=== PATIENT | male | born 1940 | race Caucasian/White ===

== ENCOUNTER → 2017-12-21 15:21 | Outpatient (CLI) | payer MEDICARE, OTHER, SELFPAY ==
[2017-12-21 16:15] LABS: Prothrombin Time (Protime)PT. 37.7 SECONDS (11.7-14.9)
[2017-12-21 17:56] LABS: International Normalized Ratio 3.8
== END ==
PROVIDERS: Family Provider Internal Medicine; PCP Internal Medicine; Referring Provider Internal Medicine; Visit Provider Internal Medicine
DX: I48.91 Unspecified atrial fibrillation (principal)
CPT/HCPCS: 85610

== ENCOUNTER → 2018-01-21 10:20 | Outpatient (CLI) | payer MEDICARE, OTHER, SELFPAY ==
--- NOTE | 2018-01-21 11:17 | CR.HP_ITS ---
CR - History & Physical - General Arrival date:: 01/21/18 Arrival time:: 11:13 Date of Referral:: 01/21/18 Date of CR Evaluation:: 01/21/18 Referring Physician: Dr. Valladares Primary Diagnosis: Aortic valve replacement 11/16/17 - History of Present Cardiac Event Onset Date: Enter Onset Date of cardiac illnesses in Comment field below Current stable Angina Pectoris:: No Acute Myocardial Infarction within 12 months:: No Coronary Artery Bypass Graft:: No Heart valve replacement or repair:: Yes - aortic valve PTCA or coronary stenting:: No Heart or Heart-Lung Transplant:: No Heart Failure EF <35%:: No Type of Symptoms:: leaky valve needed replaced, decreased endurance Interventions with present event:: open chest valve replacement Were there any complications?: no - Medications Home Medications: Ambulatory Orders Medication Instructions Recorded Ascorbic Acid [Vitamin C] 500 mg PO DAILY@0800 02/20/14 Enalapril Maleate [Vasotec] 20 mg PO BID 02/20/14 Finasteride [Proscar] 5 mg PO DAILY 02/20/14 Lysine [l-Lysine] 600 mg PO DAILY 02/20/14 Multivitamins,Therapeutic 1 tab PO DAILY 02/20/14 [Multivitamin] Warfarin Sodium 1 tab PO MOWEFR 07/11/16 Warfarin [Coumadin] 7.5 mg PO SUTUTHSA 07/11/16 echinacea 380 mg capsule 380 mg PO ONCE PRN 03/19/17 awxiacitkfk-ooa-wkxonzssh-hrb 1 tab PO DAILY 03/19/17 149-hyalur 500 mg-500 mg-66.7 mg tablet pollens extract tablet 1 tab PO DAILY 03/19/17 triamcinolone acetonide 55 mcg 2 spray INTRANASAL QDAY 03/19/17 nasal spray aerosol zinc 50 mg tablet 50 mg PO QDAY PRN 03/19/17 Hydrocodone Bitart/Apap 5-325 1 tab PO Q6H PRN PRN #8 tab 03/26/17 [Sweeden 5MG-325MG] Acetaminophen 325 mg PO Q6H PRN PRN 01/21/18 Aspirin 81 mg PO DAILY 01/21/18 Losartan Potassium [Cozaar] 25 mg PO DAILY 01/21/18 - Allergies Allergies/Adverse Reactions: Allergies amlodipine Allergy (Unknown, Verified 04/09/17 08:48) Unknown adhesive tape Allergy (Verified 04/09/17 08:48) Rash clarithromycin [From Biaxin] Adverse Reaction (Verified 04/09/17 08:48) Other HALLUCINATIONS doxycycline Adverse Reaction (Verified 04/09/17 08:48) Other HALLUCINATIONS oxycodone [Oxycodone] Adverse Reaction (Verified 04/09/17 08:48) Nausea oxycodone HCl [From Percocet] Adverse Reaction (Verified 04/09/17 08:48) Other HYPERACTIVITY,HALLUCINATIONS tamsulosin HCl [From Flomax] Adverse Reaction (Verified 04/09/17 08:48) Other MUSCLE SORENESS - Sleep Disorder Evaluation Hx of Sleep Apnea: No Do you snore loudly (louder than talking or can be heard through closed doors)?: Yes Do you often feel tired/ fatigued/ sleepy during daytime?: Yes Has anyone observed you stop breathing during sleep?: No History of Hypertension (for STOP score): Yes STOP Results: Positive Advanced Directives - Advanced Directives Power of Yacht Rigger: Yes Living Will: Yes Advance Directives Information Provided: Yes Advance Directives on File: Yes DNR Order?:: No Past Medical History - Past Medical Illness Medical History: Past Medical History (Last Reviewed 04/09/17 @ 08:48 by April Olvera) Hx of sigmoidoscopy (Acute) Z98.890 05/06/2007, 05/30/2010 Atrial flutter (Acute) I48.92 Atrial fibrillation (Acute) I48.91 Basal cell carcinoma (Acute) C44.91 Carotid artery occlusion (Acute) I65.29 Degenerative disc disease (Acute) 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 External hemorrhoids without mention of complication (Acute) K64.4 Hemorrhage of rectum and anus (Acute) K62.5 Hypertrophy of prostate with urinary retention (Acute) N40.1, R33.8 Osteoarthritis (Acute) M19.90 Hypertension (Chronic) I10 - Past Surgical History Surgical History: Past Surgical History (Last Reviewed 04/09/17 @ 08:48 by April Olvera) 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 Shoulder and Left side of face 2014 S/P colonoscopy (Acute) Z98.890 06/05/2011 History of heart valve replacement (Acute) Z98.890, Z95.2 - Family History Summary Family History: Family History (Last Reviewed 04/09/17 @ 08:48 by April Olvera) Father Heart disease Social History - Smoking History Smoking Status: Former smoker Hx Smoking Cessation Date: quit Hx Tobacco Use: No Hx Smoking Exposure: No - Alcohol Use Alcohol Usage: Yes - occas beer/wine, none since surgery - Substance Abuse Hx Substance Use: No - Occupation Occupation (List type of work in comments):: Retired - Hobbies, Recreation, Social Activities Hobbies: Exercise, Other - family Recreational Activities: I am able to engage in all my recreational activities Social Environment - Status Marital Status: - Current Living Arrangements Living Environment:: Spouse - Children How many children do you have?: 3 Do any of your children live nearby?: Yes - Safety Do you feel safe in your surroundings?: Yes - Assistance Do you need any assistance at home?: yes, snow shoveling Review of Systems - Review of Systems Hints: Right click = Denies ([place]). Left click = Reports ([place]) Review of Present Symptoms: Reports: PVD - some decreased circ to toes, Operative Discomfort - yes, some soreness yet., Fatigue, Heart Arrhythmia/Irregularities - has afib, Appetite - Normal, Appetite - Special Diet. Denies: Shortness of Breath at Rest, Shortness of Breath with Exertion, Angina, Wound Healing, Dizziness/Lightheadedness, Sleep - Normal, Sexual Changes - Pain Is Patient Pain Free?: Yes Previous experience dealing with pain?: Tylenol prn Risk Factor Assessment - Chief Complaint Chief Complaint: For cardiac rehab post valve replacement - Pulse Pulse Rate: 50 - has A fib Pulse Rhythm: Irregular - Hypertension On medication(s)?: yes Blood Pressure Sitting - Left Arm: 116/80 - Obesity Height: 5 ft 8 in Weight:: 175 lb Weight in Pounds: 175.0 lbs Body Mass Index (BMI): 26.6 Nutritional Referral for Obesity: No - Risk Stratification Risk Guidelines: Lowest Risk: Risk Factor for Smoking, Risk Factor for Diabetes, Risk Factor for Obesity, Risk Factor for Hypertension, Risk Factor for Sedentary Lifestyle, Risk Factor for Depression, Moderate Risk: Risk Factor for Dyslipidemia - For Smoking Smoking Risk Guidelines: Smoking Low Risk: None or quit greater than 6 months ago. Smoking Moderate Risk: Smoker or quit 6 months or less ago. Smoking High Risk: Smoker - For Dyslipidemia Dyslipidemia Risk Guidelines: Low Risk: Moderate Risk: High Risk: 15-25% fat 25.1-29% fat >/= 30% fat. <7% sat fat 7-9% sat fat >9% sat fat. <150 mg chol 150-299 mg chol >/= 300 mg chol. LDL <100 LDL 100-129 LDL >/= 130. Chol/HDL ratio <5.0 Chol/HDL ratio 5.0-6.0 Chol/HDL ratio >6.0. Triglycerides <100 Triglycerides 100-149 Triglycerides >/= 150 - For Diabetes Mellitus Diabetes Risk Guidelines: Diabetes Low Risk: HgA1c <6.5% and/or FBG <120. Diabetes Moderate Risk: HgA1c 6.6-7.9% and/or FBG 120-180. Diabetes High Risk: HgA1c >/= 8% and/or FBG >180 - For Obesity/Overweight Obesity/Overweight Risk Guidelines: Obesity Low Risk: BMI <25.0. Obesity Moderate Risk: BMI 25-29.9. Obesity High Risk: BMI >/= 30.0 - For Hypertension Hypertension Risk Guidelines: Hypertension Low Risk: Systolic <120 and Diastolic <80. Hypertension Moderate Risk: Systolic 120-139 and Diastolic 80-89. Hypertension High Risk: Systolic >/= 140 and Diastolic >/= 90 - For Sedentary Lifestyle Sedentary Lifestyle Risk Guidelines: Sedentary Lifestyle Low Risk: >/= 1,500 kcal/week. Sedentary Lifestyle Moderate Risk: 700-1,499 kcal/week. Sedentary Lifestyle High Risk: < 700 kcal/week - For Depression Depression Risk Guidelines: Depression Low Risk: Not clinically depressed. Depression Moderate Risk: Mildly depressed. Depression High Risk: Clinically depressed - Family History Family History: Family History (Last Reviewed 04/09/17 @ 08:48 by April Olvera) Father Heart disease Motivation - Motivation to Participate On a scale of 1 to 10, how prepared are you to commit to attending program?: 10
[2018-01-21 11:54] VITALS: BP 116/80; PULSE 50; BMI 26.6
--- NOTE | 2018-01-21 12:45 | CR.ITP_ITS ---
General Information - General Information Admitting Diagnosis: AVR - Education/Goals Barriers to Learning: None Individual Counseling: Initial Assessment: Abnormal Cholesterol Levels, High Blood Pressure Cardiac Rehabilitation Goals: 1. Maintain the individual as the primary focus of care. 2. To improve the patient's quality of life. 3. Identification of cardiac risk factors and provide cardiac risk factor management. 4. Enhance the psychosocial status of the patient. 5. Reconditioning enough to allow the patient to resume customary activities. 6. Control symptoms of cardiac disease Scale for measuring improvement of personal goals: Enter appropriate number in Comments. 2 = Unchanged. 3 = Slightly Better. 4 = Moderate Improvement. 5 = Met my Goal Personal Goals: Initial Assessment: Improve energy level, Participate in home exercise program - return to level of fitness pre-surgery, Get back to work, or to resume activities faster - mow the lawn next year, Improve muscle strength and endurance Exercise - Initial Assessment - Visit Date of Eval: 01/21/18 - Stages of Change Stages of Change:: Action - Exercise Prescription Mode:: Treadmill, Rower, Airdyne, NuStep Angina with exercise?: No Target Heart Rate:: 106-113 - Hypertension Do any of the following apply?: Medication Resting Blood Pressure:: 126/68 - Intervention Home Exercise/Activity Goal:: Moderate Exercise 30 min/day x 5 days/wk - Education Goals:: Warm-up, RPE CAMILLA Scale, S/S, Safe Exercise, Self-Monitoring Nutrition - Initial Assessment - Program Goals Nutrition Program Goals: LDL <70. Total Cholesterol <200. HDL >45. Triglycerides <150. HgbA1C <7%. BMI <25 - Visit Date of Assessment:: 01/21/18 - Stages of Change Stages of Change:: Action - Diabetes Diabetes:: No Do you monitor your blood sugar at home?: No - Weight Management Height: 5 ft 8 in Weight:: 175 lb Body Fat %:: 26.61 - Intervention Referral to dietitian:: No Referral to Diabetic Clinic:: No Will attend diet classes:: Yes - Education Gave educational materials for:: Healthy eating Tobacco - Initial Assessment - Program Goals Tobacco Program Goals: Complete smoking cessation. Attend education classes. Improve Knowledge Test score - Stage of Change Stages of Change:: Action - Learning Barriers Learning Barriers: Ready to Learn - Family Support Do you have family support?: Yes - Tobacco Use Tobacco Use: Non-smoker Do you use smokeless tobacco?: No - Intervention Smoking Cessation Referral:: No Education Schedule Given:: Yes - Education Gave educational material for:: Coronary artery disease, Risk factors, Sexuality, Medical compliance, Cardiac A&P, Angina signs & symptoms Psychosocial - Initial Assess - Target Goals Target Goals: Assess presence or absence of depression. Using a valid screening tool, maximizes coping skills. Positive support system - Stages of Change Stages of Change:: Action - Psychosocial Test Tool Used:: HANDS Depression Questionnaire - Intervention PS - Interventions: Yes Attend Stress Management Classes, No Referral to Mental Health, No Referral to [facility] Case Management, No Referral to Physician, No Uses Stress Management Skills - Education Gave educational materials for:: Coping techniques, Signs & symptoms of depression, Stress management, Relaxation techniques - Patient/Program Goal Preventative Medication(s):: Aspirin, Clopidogrel, Beta loly, Statin/lipid - Assistive Devices Assistive Devices:: None Fall Risk Assessed:: Yes Patient Health Questionnaire Initial Assessment 1. Little interest or pleasure in doing things: Not at all 2. Feeling down, depressed, or hopeless: Not at all 3. Trouble falling or staying asleep, or sleeping too much: Not at all 4. Feeling tired or having little energy: Several days 5. Poor appetite or overeating: Not at all 6. Feeling bad about yourself -- or that you are a failure or have let yourself or your family down: Not at all 7. Trouble concentrating on things, such as reading the newspaper or watching television: Several days 8. Moving or speaking so slowly that other people could have noticed. Or the opposite - being so fidgety or restless that you have been moving around a lot more than usual: Several days 9. Thoughts that you would be better off , or of hurting yourself in some way: Not at all How difficult have these problems made it for you to do your work, take care of things at home, or get along with other people?: Not difficult at all Total Score: 3 BETHANY-Q SV Test - Statements CAD is a disease of the arteries in the heart: False Examples of risk factors for heart disease: True Angina is chest pain or discomfort: True The benefits of resistance training include: True Eating more meat and dairy products: False Anti-platelet medications such as aspirin are important: True The only effective way to manage stress: False An exercise warm-up slowly increases heart rate: True Prepared, processed foods usually have high sodium: True Depression is common after a heart attack: True The statin medications lower cholesterol: True To control blood pressure, lower the amount of sodium: True If someone gets chest discomfort during walking: False Transfats are partially hydrogenated vegetable oils: True Sleep apnea that is not treated increases the risk: False To control cholesterol, one should become a vegetarian: False Someone knows if he/she is exercising at the right level: True Diabetes cannot be prevented with exercise & health eating: False Stress is a large risk for heart attack: True A diet that can help lower blood pressure is rich in: True - Total Score Total Correct Responses: 20 Self-Efficacy Initial Assessment We would like to know how confident you are in doing certain activities. Please select your confidence level for:: Select your confidence level for the following using the scale 1-10 where 1 is not at all confident and 10 is totally confident. Your score is the average of all 6 responses. Fatigue: How confident are you that you can keep the fatigue caused by your disease from interfering with the things you want to do? Select Number: 9 Physical Discomfort or Pain: How confident are you that you can keep the physical discomfort or pain of your disease from interfering with the things you want to do? Select Number: 10 Emotional Distress: How confident are you that you can keep the emotional distress caused by your disease from interfering with the things you want to do? Select Number: 10 Other Symptoms or Health Problems: How confident are you that you can keep other symptoms or health problems from interfering with the things you want to do? Select Number: 10 Different Tasks and Activities: How confident are you that you can do the different tasks and activities needed to manage your health condition so as to reduce your need to see a doctor? Select Number: 10 Medication: How confident are you that you can do things other than just taking medication to reduce how much your illness affects your everyday life? Select Number: 10 Total Score:: 9 Nutrition Survey - Nutrition Survey Instructions Scoring Instructions: Scoring is as follows: Yes = 1 points. No = 0 point. Patient score that is >/=12 is considered to be at potential nutritional risk and could benefit from a referral to a registered dietitian. - Nutrition Survey Initial Have you lost >10 lbs over the past 2 months without trying?: No Are you following a special diet at home for diabetes, low fat, or low salt?: No Are you interested in meeting with a dietitian for help understanding your diet?: No Do you eat less than 3 meals a day?: No Do you eat fatty meats (markham, sausage, ribs, etc), fried foods, desserts, large amounts of salad dressings, margarine, butter, or cheese most days?: No Do you have food allergies? [Enter types in comment field]: No Do you eat in restaurants more than 3 times a week?: No Do you season food with salt, seasoning salt, or garlic salt?: No Do you used canned, boxed, frozen meals, or soups, seasoning packets?: No - Strict Nutritional Diet and [employer]. Total Score:: 0
[2018-01-21 12:48] VITALS: BP 126/68
== END ==
PROVIDERS: Family Provider Internal Medicine; PCP Internal Medicine
DX: Z95.2 Presence of prosthetic heart valve (principal)

== ENCOUNTER 2018-02-05 13:00 | Outpatient (RCR) | payer MEDICARE, OTHER, SELFPAY ==
[2018-01-21 11:54] VITALS: BMI 26.6
== END 2018-02-05 23:59 ==
LOC: CR 13:00
PROVIDERS: Family Provider Internal Medicine; PCP Internal Medicine
DX: T82.897D Other specified complication of cardiac prosthetic devices, implants and grafts, subsequent encounter (principal)
CPT/HCPCS: 93798

== ENCOUNTER 2018-03-08 13:00 | Outpatient (RCR) | payer MEDICARE, OTHER, SELFPAY ==
[2018-01-21 11:54] VITALS: BMI 26.6
--- NOTE | 2018-02-22 09:43 | PCM.CR.ITP ---
General Information - General Information Admitting Diagnosis: AVR - Education/Goals Cardiac Rehabilitation Goals: 1. Maintain the individual as the primary focus of care. 2. To improve the patient's quality of life. 3. Identification of cardiac risk factors and provide cardiac risk factor management. 4. Enhance the psychosocial status of the patient. 5. Reconditioning enough to allow the patient to resume customary activities. 6. Control symptoms of cardiac disease Scale for measuring improvement of personal goals: Enter appropriate number in Comments. 2 = Unchanged. 3 = Slightly Better. 4 = Moderate Improvement. 5 = Met my Goal Exercise - 30-day Assessment - Visit Date of Eval: 02/22/18 Session #:: 11 - Stages of Change Stages of Change:: Action - Exercise Prescription Mode:: Treadmill, Airdyne, NuStep Frequency (x/week): 3 Duration:: 35 METs - Progression: 0.5-1 MET as tolerated: 7.5 Target Heart Rate:: 121-132 Max HR 124 - Hypertension Resting Blood Pressure:: 118/78 Peak Exercise Blood Pressure:: 150/78 - Intervention Home Exercise/Activity Goal:: Sitting Time <3 hrs/day - Education Goals:: Warm-up, RPE CAMILLA Scale, S/S, Safe Exercise, Self-Monitoring - Exercise Program Goals Exercise Program Goals: Aerobic Activity >30 min, B/P <130/80 Nutrition - Initial Assessment - Program Goals Nutrition Program Goals: LDL <70. Total Cholesterol <200. HDL >45. Triglycerides <150. HgbA1C <7%. BMI <25 - Diabetes Do you monitor your blood sugar at home?: No Nutrition - 30-Day Assessment - Program Goals Nutrition Program Goals: LDL <70. Total Cholesterol <200. HDL >45. Triglycerides <150. HgbA1C <7%. BMI <25 - Visit Date of Eval: 02/22/18 - Stages of Change Stages of Change:: Action - Weight Management Weight:: 82.554 kg - Intervention Referral to dietitian:: No Referral to Diabetic Clinic:: No Will attend diet classes:: Yes - Education Attended class for:: Signs & symptoms of hypoglycemia, Signs & symptoms of hyperglycemia, Relate diabetes to coronary artery disease, Healthy eating Tobacco - Initial Assessment - Program Goals Tobacco Program Goals: Complete smoking cessation. Attend education classes. Improve Knowledge Test score - Learning Barriers Learning Barriers: Ready to Learn Tobacco - 30-Day Assessment - Program Goals Tobacco Program Goals: Complete smoking cessation. Attend education classes. Improve Knowledge Test score - Stage of Change Stages of Change:: Action - Learning Barriers Learning Barriers: Participates in education - Family Support Do you have family support?: Yes - Tobacco Use Tobacco Use: Non-smoker - Education Attended class for:: Tobacco triggers, Coronary artery disease, Risk factors, Sexuality, Medical compliance, Cardiac A&P, Angina signs & symptoms Psychosocial - Initial Assess - Target Goals Target Goals: Assess presence or absence of depression. Using a valid screening tool, maximizes coping skills. Positive support system - Psychosocial Test Tool Used:: HANDS Depression Questionnaire - Assistive Devices Fall Risk Assessed:: Yes Psychosocial - 30-Day Assess - Target Goals Target Goals: Assess presence or absence of depression. Using a valid screening tool, maximizes coping skills. Positive support system - Stages of Change Stages of Change:: Action - Psychosocial Test Tool Used:: HANDS Depression Questionnaire - Intervention PS - Interventions: Yes Attend Stress Management Classes, Yes Uses Stress Management Skills, No Referral to Mental Health, No Referral to [facility] Case Management, No Referral to Physician - Education Attended classes for:: Coping techniques, Signs & symptoms of depression, Stress management, Relaxation techniques - Assistive Devices Assistive Devices:: None Fall Risk Assessed:: Yes Patient Health Questionnaire 30-Day Re-eval Assessment 1. Little interest or pleasure in doing things: Not at all 2. Feeling down, depressed, or hopeless: Not at all 3. Trouble falling or staying asleep, or sleeping too much: Not at all 4. Feeling tired or having little energy: Several days 5. Poor appetite or overeating: Not at all 6. Feeling bad about yourself -- or that you are a failure or have let yourself or your family down: Not at all 7. Trouble concentrating on things, such as reading the newspaper or watching television: Several days 8. Moving or speaking so slowly that other people could have noticed. Or the opposite - being so fidgety or restless that you have been moving around a lot more than usual: Several days 9. Thoughts that you would be better off , or of hurting yourself in some way: Not at all How difficult have these problems made it for you to do your work, take care of things at home, or get along with other people?: Not difficult at all Total Score: 3 Self-Efficacy 30-Day Re-eval Assessment We would like to know how confident you are in doing certain activities. Please select your confidence level for:: Select your confidence level for the following using the scale 1-10 where 1 is not at all confident and 10 is totally confident. Your score is the average of all 6 responses. Fatigue: How confident are you that you can keep the fatigue caused by your disease from interfering with the things you want to do? Select Number: 9 Physical Discomfort or Pain: How confident are you that you can keep the physical discomfort or pain of your disease from interfering with the things you want to do? Select Number: 10 Emotional Distress: How confident are you that you can keep the emotional distress caused by your disease from interfering with the things you want to do? Select Number: 10 Other Symptoms or Health Problems: How confident are you that you can keep other symptoms or health problems from interfering with the things you want to do? Select Number: 10 Different Tasks and Activities: How confident are you that you can do the different tasks and activities needed to manage your health condition so as to reduce your need to see a doctor? Select Number: 10 Medication: How confident are you that you can do things other than just taking medication to reduce how much your illness affects your everyday life? Select Number: 10 Total Score:: 9
[2018-02-22 09:48] VITALS: BP 118/78; BP 150/78
== END 2018-03-08 23:59 ==
LOC: CR 13:00
PROVIDERS: Family Provider Internal Medicine; PCP Internal Medicine
DX: T82.897D Other specified complication of cardiac prosthetic devices, implants and grafts, subsequent encounter (principal)
CPT/HCPCS: 93798

== ENCOUNTER 2018-04-07 13:00 | Outpatient (RCR) | payer MEDICARE, OTHER, SELFPAY ==
[2018-01-21 11:54] VITALS: BMI 26.6
[2018-03-09 01:22] VITALS: BP 118/78; BP 150/78
--- NOTE | 2018-03-24 08:58 | PCM.CR.ITP ---
General Information - General Information Admitting Diagnosis: valve replacement/ AVR - Education/Goals Cardiac Rehabilitation Goals: 1. Maintain the individual as the primary focus of care. 2. To improve the patient's quality of life. 3. Identification of cardiac risk factors and provide cardiac risk factor management. 4. Enhance the psychosocial status of the patient. 5. Reconditioning enough to allow the patient to resume customary activities. 6. Control symptoms of cardiac disease Scale for measuring improvement of personal goals: Enter appropriate number in Comments. 2 = Unchanged. 3 = Slightly Better. 4 = Moderate Improvement. 5 = Met my Goal Exercise - 60-Day Assessment - Visit Date of Eval: 03/24/18 Session #:: 23 - Stages of Change Stages of Change:: Action - Exercise Prescription Mode:: Treadmill, Rower, Airdyne Frequency (x/week): 3 Duration:: 30-45 METs: 8 Target Heart Rate:: 121-132 Max HR 122 - Hypertension Resting Blood Pressure:: 132/80 Peak Exercise Blood Pressure:: 150/80 - Intervention Home Exercise/Activity Goal:: Sitting Time <3 hrs/day - Education Goals:: Warm-up, RPE CAMILLA Scale, S/S, Safe Exercise, Self-Monitoring - Exercise Program Goals Exercise Program Goals: Aerobic Activity >30 min, B/P <130/80 Nutrition - Initial Assessment - Program Goals Nutrition Program Goals: LDL <70. Total Cholesterol <200. HDL >45. Triglycerides <150. HgbA1C <7%. BMI <25 - Diabetes Do you monitor your blood sugar at home?: No Nutrition - 60-Day Assessment - Program Goals Nutrition Program Goals: LDL <70. Total Cholesterol <200. HDL >45. Triglycerides <150. HgbA1C <7%. BMI <25 - Visit Date of Eval: 03/24/18 - Stages of Change Stages of Change:: Action - Weight Management Weight:: 82.554 kg - Intervention Referral to dietitian:: No Referral to Diabetic Clinic:: No Will attend diet classes:: Yes - Education Attended class for:: Signs & symptoms of hypoglycemia, Signs & symptoms of hyperglycemia, Relate diabetes to coronary artery disease, Healthy eating Tobacco - Initial Assessment - Program Goals Tobacco Program Goals: Complete smoking cessation. Attend education classes. Improve Knowledge Test score - Learning Barriers Learning Barriers: Ready to Learn Tobacco - 60-Day Assessment - Program Goals Tobacco Program Goals: Complete smoking cessation. Attend education classes. Improve Knowledge Test score - Stage of Change Stages of Change:: Action - Learning Barriers Learning Barriers: Participates in education - Family Support Do you have family support?: Yes - Tobacco Use Tobacco Use: Non-smoker Do you use smokeless tobacco?: No - Intervention Smoking Cessation Referral:: No Individual Education/Counseling:: No Education Schedule Given:: Yes - Education Attended class for:: Tobacco triggers, Coronary artery disease, Risk factors, Sexuality, Medical compliance, Cardiac A&P, Angina signs & symptoms Psychosocial - Initial Assess - Target Goals Target Goals: Assess presence or absence of depression. Using a valid screening tool, maximizes coping skills. Positive support system - Psychosocial Test Tool Used:: HANDS Depression Questionnaire - Assistive Devices Fall Risk Assessed:: Yes Psychosocial - 60-Day Assess - Target Goals Target Goals: Assess presence or absence of depression. Using a valid screening tool, maximizes coping skills. Positive support system - Stages of Change Stages of Change:: Action - Psychosocial Test Tool Used:: HANDS Depression Questionnaire - Intervention PS - Interventions: Yes Attend Stress Management Classes, Yes Uses Stress Management Skills, No Referral to Mental Health, No Referral to [facility] Case Management, No Referral to Physician - Education Attended classes for:: Coping techniques, Signs & symptoms of depression, Stress management, Relaxation techniques - Assistive Devices Assistive Devices:: None Fall Risk Assessed:: Yes Patient Health Questionnaire 60-Day Re-eval Assessment 1. Little interest or pleasure in doing things: Not at all 2. Feeling down, depressed, or hopeless: Not at all 3. Trouble falling or staying asleep, or sleeping too much: Not at all 4. Feeling tired or having little energy: Not at all 5. Poor appetite or overeating: Not at all 6. Feeling bad about yourself -- or that you are a failure or have let yourself or your family down: Not at all 7. Trouble concentrating on things, such as reading the newspaper or watching television: Several days 8. Moving or speaking so slowly that other people could have noticed. Or the opposite - being so fidgety or restless that you have been moving around a lot more than usual: Several days 9. Thoughts that you would be better off , or of hurting yourself in some way: Not at all How difficult have these problems made it for you to do your work, take care of things at home, or get along with other people?: Not difficult at all Total Score: 2 Self-Efficacy 60-Day Re-eval Assessment We would like to know how confident you are in doing certain activities. Please select your confidence level for:: Select your confidence level for the following using the scale 1-10 where 1 is not at all confident and 10 is totally confident. Your score is the average of all 6 responses. Fatigue: How confident are you that you can keep the fatigue caused by your disease from interfering with the things you want to do? Select Number: 10 Physical Discomfort or Pain: How confident are you that you can keep the physical discomfort or pain of your disease from interfering with the things you want to do? Select Number: 10 Emotional Distress: How confident are you that you can keep the emotional distress caused by your disease from interfering with the things you want to do? Select Number: 10 Other Symptoms or Health Problems: How confident are you that you can keep other symptoms or health problems from interfering with the things you want to do? Select Number: 10 Different Tasks and Activities: How confident are you that you can do the different tasks and activities needed to manage your health condition so as to reduce your need to see a doctor? Select Number: 10 Medication: How confident are you that you can do things other than just taking medication to reduce how much your illness affects your everyday life? Select Number: 10 Total Score:: 10
[2018-03-24 09:04] VITALS: BP 132/80; BP 150/80
== END 2018-04-08 23:59 ==
LOC: CR 13:00
PROVIDERS: Family Provider Internal Medicine; PCP Internal Medicine
DX: T82.897D Other specified complication of cardiac prosthetic devices, implants and grafts, subsequent encounter (principal)
CPT/HCPCS: 93798

== ENCOUNTER 2018-04-23 13:00 | Outpatient (RCR) | payer MEDICARE, OTHER, SELFPAY ==
[2018-01-21 11:54] VITALS: BMI 26.6
[2018-04-09 01:26] VITALS: BP 132/80; BP 150/80
--- NOTE | 2018-04-21 09:02 | CR.ITP_ITS ---
General Information - General Information Admitting Diagnosis: Valve Replacement - Education/Goals Cardiac Rehabilitation Goals: 1. Maintain the individual as the primary focus of care. 2. To improve the patient's quality of life. 3. Identification of cardiac risk factors and provide cardiac risk factor management. 4. Enhance the psychosocial status of the patient. 5. Reconditioning enough to allow the patient to resume customary activities. 6. Control symptoms of cardiac disease Scale for measuring improvement of personal goals: Enter appropriate number in Comments. 2 = Unchanged. 3 = Slightly Better. 4 = Moderate Improvement. 5 = Met my Goal Exercise - 90-Day Assessment - Visit Date of Eval: 04/21/18 Session #:: 35 - Stages of Change Stages of Change:: Action - Exercise Prescription Mode:: Treadmill, Rower, Airdyne Frequency (x/week): 3 Duration:: 30-45 METs: 8 Target Heart Rate:: 121-132 Max HR 124 - Intervention Home Exercise/Activity Goal:: Sitting Time <3 hrs/day - Education Goals:: Warm-up, RPE CAMILLA Scale, S/S, Safe Exercise, Self-Monitoring - Exercise Program Goals Exercise Program Goals: Aerobic Activity >30 min, B/P <130/80 Nutrition - Initial Assessment - Program Goals Nutrition Program Goals: LDL <70. Total Cholesterol <200. HDL >45. Triglycerides <150. HgbA1C <7%. BMI <25 - Diabetes Do you monitor your blood sugar at home?: No Nutrition - 90-Day Assessment - Program Goals Nutrition Program Goals: LDL <70. Total Cholesterol <200. HDL >45. Triglyce rides <150. HgbA1C <7%. BMI <25 - Visit Date of Eval: 04/21/18 - Stages of Change Stages of Change:: Action - Diabetes Diabetes:: No - Weight Management Weight:: 83.688 kg - Intervention Referral to dietitian:: No Referral to Diabetic Clinic:: No Will attend diet classes:: Yes - Education Attended class for:: Signs & symptoms of hypoglycemia, Signs & symptoms of hyperglycemia, Relate diabetes to coronary artery disease, Healthy eating Tobacco - Initial Assessment - Program Goals Tobacco Program Goals: Complete smoking cessation. Attend education classes. Improve Knowledge Test score - Learning Barriers Learning Barriers: Ready to Learn Tobacco - 90-Day Assessment - Program Goals Tobacco Program Goals: Complete smoking cessation. Attend education classes. Improve Knowledge Test score - Stage of Change Stages of Change:: Action - Learning Barriers Learning Barriers: Participates in education - Family Support Do you have family support?: Yes - Tobacco Use Tobacco Use: Non-smoker Do you use smokeless tobacco?: No - Intervention Smoking Cessation Referral:: No Individual Education/Counseling:: No Education Schedule Given:: Yes - Education Attended class for:: Tobacco triggers, Coronary artery disease, Risk factors, Sexuality, Medical compliance, Cardiac A&P, Angina signs & symptoms Psychosocial - Initial Assess - Target Goals Target Goals: Assess presence or absence of depression. Using a valid screening tool, maximizes coping skills. Positive support system - Psychosocial Test Tool Used:: HANDS Depression Questionnaire - Assistive Devices Fall Risk Assessed:: Yes Psychosocial - 90-Day Assess - Target Goals Target Goals: Assess presence or absence of depression. Using a valid screening tool, maximizes coping skills. Positive support system - Stages of Change Stages of Change:: Action - Psychosocial Test Tool Used:: HANDS Depression Questionnaire - Intervention PS - Interventions: Yes Attend Stress Management Classes, Yes Uses Stress Management Skills, No Referral to Mental Health, No Referral to [facility] Case Management, No Referral to Physician - Education Attended classes for:: Coping techniques, Signs & symptoms of depression, Stress management, Relaxation techniques - Assistive Devices Assistive Devices:: None Fall Risk Assessed:: Yes Patient Health Questionnaire 90-Day Re-eval Assessment 1. Little interest or pleasure in doing things: Not at all 2. Feeling down, depressed, or hopeless: Not at all 3. Trouble falling or staying asleep, or sleeping too much: Not at all 4. Feeling tired or having little energy: Not at all 5. Poor appetite or overeating: Not at all 7. Trouble concentrating on things, such as reading the newspaper or watching television: Several days 8. Moving or speaking so slowly that other people could have noticed. Or the opposite - being so fidgety or restless that you have been moving around a lot more than usual: Several days 9. Thoughts that you would be better off , or of hurting yourself in some way: Not at all How difficult have these problems made it for you to do your work, take care of things at home, or get along with other people?: Not difficult at all Total Score: 2 Self-Efficacy 90-Day Re-eval Assessment We would like to know how confident you are in doing certain activities. Please select your confidence level for:: Select your confidence level for the following using the scale 1-10 where 1 is not at all confident and 10 is totally confident. Your score is the average of all 6 responses. Fatigue: How confident are you that you can keep the fatigue caused by your disease from interfering with the things you want to do? Select Number: 10 Physical Discomfort or Pain: How confident are you that you can keep the physical discomfort or pain of your disease from interfering with the things you want to do? Select Number: 10 Emotional Distress: How confident are you that you can keep the emotional distress caused by your disease from interfering with the things you want to do? Select Number: 10 Other Symptoms or Health Problems: How confident are you that you can keep other symptoms or health problems from interfering with the things you want to do? Select Number: 10 Different Tasks and Activities: How confident are you that you can do the different tasks and activities needed to manage your health condition so as to reduce your need to see a doctor? Select Number: 10 Medication: How confident are you that you can do things other than just taking medication to reduce how much your illness affects your everyday life? Select Number: 10 Total Score:: 10
== END 2018-05-06 23:59 ==
LOC: CR 13:00
PROVIDERS: Family Provider Internal Medicine; PCP Internal Medicine
DX: T82.897D Other specified complication of cardiac prosthetic devices, implants and grafts, subsequent encounter (principal)
CPT/HCPCS: 93798

== ENCOUNTER 2022-08-28 08:57 | Inpatient (IN) | payer MEDICARE, OTHER, SELFPAY ==
[2022-08-28 08:58] VITALS: BP 156/91; PULSE 94; RESP 18; TEMP 36.2; O2SAT 97; BMI 27.1
--- NOTE | 2022-08-28 09:21 | ED.VIS.GI ---
HPI HPI - GI History of Present Illness Chief Complaint: GI Bleed Narrative Narrative: 51-year-old male presenting with rectal bleeding. He states it is bright red. He states he had this after he had a bowel movement today. He does have a history of hemorrhoids and is unsure if these were bleeding. He states there was a lot of blood and he has not had this much blood in the past. He has had bleeding hemorrhoids. No lightheadedness or dizziness. No shortness of breath. Patient on Coumadin for history of A-fib. 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 External hemorrhoids without mention of complication Hemorrhage of rectum and anus Hx of sigmoidoscopy Hypertension Hypertrophy of prostate with urinary retention Osteoarthritis Home Medications finasteride 5 mg tablet 5 mg PO DAILY PROSTATE 02/20/14 [History Last Taken 08/27/22] lysine 600 mg tablet 600 mg PO DAILY PRN Cold Sores 02/20/14 [History Last Taken Unknown] warfarin 5 mg tablet 1 tab PO SUMOTUTHFRSA BLOOD THINNER 07/11/16 [History Last Taken 08/26/22] echinacea 380 mg capsule 380 mg PO ONCE PRN COLD SYMPTOMS 03/19/17 [History Last Taken Unknown] triamcinolone acetonide 55 mcg nasal spray aerosol (Nasacort) 1 - 2 spray intranasal QHS ALLERGIES 03/19/17 [History Last Taken 08/27/22] aspirin 81 mg tablet,delayed release 81 mg PO DAILY HEART HEALTH 08/28/22 [History Last Taken 08/27/22] atorvastatin 10 mg tablet 10 mg PO QHS CHOLESTEROL 08/28/22 [History Last Taken 08/27/22] cholecalciferol (vitamin D3) 25 mcg (1,000 unit) tablet 25 mcg PO DAILY SUPPLEMENT 08/28/22 [History Last Taken 08/27/22] losartan 50 mg tablet 50 mg PO BID BLOOD PRESSURE 08/28/22 [History Last Taken 08/27/22] metoprolol tartrate 50 mg tablet 50 mg PO BID BLOOD PRESSURE 08/28/22 [History Last Taken 08/27/22] warfarin 5 mg tablet 7.5 mg PO WE BLOOD THINNER 08/28/22 [History Last Taken 08/27/22] zinc acetate 50 mg (zinc) capsule 50 mg PO DAILY PRN Cold Symptoms 08/28/22 [History Last Taken Unknown] Allergy/AdvReac Type Severity Reaction Status Date / Time amlodipine Allergy Unknown Unknown Verified 04/09/17 08:48 adhesive tape Allergy Rash Verified 04/09/17 08:48 clarithromycin [From Biaxin] AdvReac Other Verified 04/09/17 08:48 doxycycline AdvReac Other Verified 04/09/17 08:48 oxycodone [Oxycodone] AdvReac Nausea Verified 04/09/17 08:48 oxycodone HCl [From Percocet] AdvReac Other Verified 04/09/17 08:48 tamsulosin HCl [From Flomax] AdvReac Other Verified 04/09/17 08:48 Family History Father Heart disease Surgical History History of basal cell carcinoma excision History of heart valve replacement History of surgery on upper extremity S/P aortic valve replacement with tissue S/P cataract extraction S/P colonoscopy S/P rotator cuff repair Status post total hip replacement, left Status post total replacement of hip Social History Smoking Status: Former smoker second hand exposure: No alcohol intake: current alcohol intake frequency: holidays/special occasions only substance use type: does not use caffeine: No what type of physical activity do you participate in: other details: patient goes to [facility] frequency: 1-2 times per week seatbelt use: always ROS ROS ED Constitutional Constitutional ED: Denies chills, fever(s) or sweats Eyes Eyes: Denies blurry vision or change in vision ENT ENT ED: Denies ear pain or sore throat Cardiovascular Cardiovascular: Denies chest pain, palpitations or racing heartbeat Respiratory/Chest Respiratory/Chest: Denies cough, dyspnea or sputum Gastrointestinal Gastrointestinal: Reports other Details: Bright red bleeding per rectum ; Denies abdominal pain, constipation, diarrhea, nausea or vomiting Genitourinary Genitourinary ED: Denies dysuria, hematuria or urinary frequency Musculoskeletal Musculoskeletal: Denies arthralgias, myalgias or neck pain Integumentary Denies abscess, Abrasions or rash Neurologic Neurologic: Denies headache(s), paresthesias or weakness Psychiatric Psychiatric: Denies anxiety, depression, suicidal ideation or suicidal thoughts Endocrine Endocrinology: Denies polydipsia or polyuria EXAM Physical Exam Const Vital Signs: 08/28/22 08:58 08/28/22 09:44 08/28/22 13:07 Temperature 97.1 F L 97.8 F Temperature Source Temporal Temporal Pulse Rate 94 71 Pulse Rate [Lying] 60 Pulse Rate [Sitting (for 1 minute prior to obtaining)] 68 Pulse Rate [Standing (for 1 minute prior to obtaining)] 62 Respiratory Rate 18 16 Blood Pressure 156/91 H 175/99 H Blood Pressure [Lying] 158/88 H Blood Pressure [Sitting (for 1 minute prior to obtaining)] 154/79 H Blood Pressure [Standing (for 1 minute prior to obtaining)] 144/82 H Blood Pressure Mean 112 124 Blood Pressure Mean [Lying] 111 Blood Pressure Mean [Sitting (for 1 minute prior to obtaining)] 104 Blood Pressure Mean [Standing (for 1 minute prior to obtaining)] 102 Pulse Ox 97 97 Oxygen Delivery Method Room Air Room Air Positive well nourished General Appearance ED: NAD; Negative for pallor HEENT Reports moist mucous membranes normocephalic and atraumatic Eyes PERRL and EOMs intact bilaterally Resp normal respiratory effort and clear to auscultation bilaterally Auscultation: Negative for rales, rhonchi or wheezes Cardio regular rate and regular rhythm GI non-tender and non-distended GI Narrative: Red dried blood around rectum. No bleeding hemorrhoids noted. Neuro CN's II-XII intact bilaterally Sensorium / Orientation: alert Psych mental status grossly normal Skin no wounds General Skin Exam: Negative for jaundice or pallor MDM MDM MDM Narrative Medical decision making narrative: 81-year-old male presenting with painless bright red bleeding per rectum. He states he is not lightheaded or dizzy. He is on Coumadin and is therapeutic. Differential includes diverticular bleed, diverticulitis, internal hemorrhoids, external hemorrhoids. On examination he does not have any significant hemorrhoids nor is there any bleeding noted. There are some dried blood around the rectum. CBC will be obtained to assess white blood cell count, hemoglobin, platelets. PT/INR because patient is on Coumadin. CMP to assess liver function, renal function, glucose, anion gap, electrolytes. I reviewed the record on clinic think it looks like his hemoglobin is come down to 11.5 about point half. White blood cell count 6.8. Platelets normal. INR 2.6. Liver function and renal function normal. Electrolytes normal. Orthostatic vital signs negative. Spoke with Dr. Gray who is amenable to having the patient admitted for GI bleed but recommended CT scan prior to admission. This was performed and it shows acute diverticulitis. Patient was given Zosyn, he was typed and screened. I spoke with the hospitalist for admission. I did call Dr. Gray back to inform him of the diagnosis. Impression: 1. Acute sigmoid diverticulitis 2. Diverticular bleed Lab Data Labs: Laboratory Results - last 24 hr 08/28/22 08/28/22 08/28/22 09:30 09:30 09:30 WBC 6.8 RBC 3.75 L Hgb 11.5 L Hct 34.5 L MCV 92.0 MCH 30.7 MCHC 33.3 RDW Std Deviation 47.0 H RDW Coeff of Ed 14.0 Plt Count 183 MPV 8.9 Immature Gran % (Auto) 0.400 Neut % (Auto) 48.8 Lymph % (Auto) 34.1 [place] % (Auto) 11.3 H Eos % (Auto) 4.7 Baso % (Auto) 0.7 Absolute Neuts (auto) 3.3 Absolute Lymphs (auto) 2.33 Nucleated RBC % 0 PT 28.6 H INR 2.6 Sodium Potassium Chloride Carbon Dioxide Anion Gap BUN Creatinine Estim Creat Clear Calc Est GFR (MDRD) Af Amer Est GFR (MDRD) Non-Af BUN/Creatinine Ratio Glucose Calcium Total Bilirubin AST ALT Alkaline Phosphatase Total Protein Albumin Globulin Albumin/Globulin Ratio Blood Type O POSITIVE Antibody Screen NEGATIVE 08/28/22 09:30 WBC RBC Hgb Hct MCV MCH MCHC RDW Std Deviation RDW Coeff of Ed Plt Count MPV Immature Gran % (Auto) Neut % (Auto) Lymph % (Auto) [place] % (Auto) Eos % (Auto) Baso % (Auto) Absolute Neuts (auto) Absolute Lymphs (auto) Nucleated RBC % PT INR Sodium 141 Potassium 4.1 Chloride 108 H Carbon Dioxide 30.0 Anion Gap 3 L BUN 30 H Creatinine 1.12 Estim Creat Clear Calc 49.20 Est GFR (MDRD) Af Amer 81 Est GFR (MDRD) Non-Af 67 BUN/Creatinine Ratio 26.8 H Glucose 102 Calcium 9.1 Total Bilirubin 0.80 AST 29 ALT 30 Alkaline Phosphatase 121 H Total Protein 6.7 Albumin 3.3 Globulin 3.4 Albumin/Globulin Ratio 1.0 Blood Type Antibody Screen Radiography Diagnostic Testing: Clinical Impression(s) from Imaging Studies Abdomen/Pelvis CT 08/28/22 11:33 IMPRESSION: Acute diverticulitis suspected in the distal descending and proximal sigmoid colon where there is some mucosal thickening of the colon and a minimal amount of pericolonic inflammatory stranding. No perforation or abscess noted Mild fatty infiltration of liver, no discrete lesion No free intraperitoneal fluid, air, or suspicious adenopathy Diffuse atherosclerosis Degenerative bony changes, replaced hip joints free of complication Electronically Signed: Phillip Arriola MD at 12:16 EDT , Discharge Plan Disposition Disposition: Acute Care Hospital [facility] Discharge Date/Time: 08/28/22 13:48
[2022-08-28 09:42] LABS: Absolute Lymphocyte Count 2.33 X10^3/uL (0.83-4.51); Absolute Neutrophil Count 3.3 X10^3/uL (2.0-7.7); Basophil# 0.05 X10^3/uL; Basophil% 0.7 % (0-1); Eosinophil# 0.32 X10^3/uL; Eosinophils% 4.7 % (0-5); Hematocrit 34.5 % (40-54); Hemoglobin 11.5 g/dL (13.0-16.5); Lymphocyte # 2.33 X10^3/ul (0.83-4.51); Lymphocyte % 34.1 % (19-41); Mean Corp Hgb Conc 33.3 g/dL (32-36); Mean Corpuscular Hgb 30.7 pg (27.0-32.0); Mean Platelet Vol. 8.9 fl (6.2-12.0); Monocyte# 0.77 X10^3/uL; Monocyte% 11.3 % (0-10); NRBC Flagged by Analyzer 0 % (0-5); Neutrophil # 3.33 X10^3/uL (2.7-7.7); Neutrophil % 48.8 % (47-70); Platelet Count 183 K/mm3 (150-450); Red Blood Count 3.75 M/mm3 (4.6-6.2); White Blood Count 6.8 K/mm3 (4.4-11.0)
[2022-08-28 09:44] VITALS: BP 144/82; BP 154/79; BP 158/88; PULSE 60; PULSE 62; PULSE 68
[2022-08-28 09:51] LABS: International Normalized Ratio 2.6; Prothrombin Time (Protime)PT. 28.6 SECONDS (11.7-14.9)
[2022-08-28 09:58] LABS: AST(SGOT) 29 U/L (15-37); Alanine Aminotransfer ALT/SGPT 30 U/L (16-61); Albumin, Serum 3.3 g/dL (3.2-5.0); Alkaline Phosphatase 121 U/L (45-117); Anion Gap 3 (5-15); BUN 30 mg/dL (7-18); BUN/Creat Ratio 26.8 RATIO (10-20); Calcium,Total 9.1 mg/dL (8.5-10.1); Chloride 108 mmol/L (98-107); Creatinine, Serum 1.12 mg/dL (0.70-1.30); EST Glomerular Filtration Rate 67 mL/min (>60); Est Glom Filt Rate - Afr Amer 81 mL/min (>60); Globulin 3.4 g/dL (2.2-4.2); Glucose 102 mg/dL (74-106); Potassium 4.1 mmol/L (3.5-5.1); Protein, Total 6.7 g/dL (6.4-8.2); Sodium Level 141 mmol/L (136-145)
--- NOTE | 2022-08-28 11:33 | CT_ITS ---
STUDY: CT ABDOMEN AND PELVIS WITH CONTRAST REASON FOR EXAM: Male, 81 years old. Anemia, possible GI bleed RADIATION DOSAGE (If Supplied By Facility): CTDIvol = ( 14.68 ) mGy, DLP = ( 793.55 ) mGycm TECHNIQUE: Transaxial images were obtained from the dome of the diaphragm to the symphysis pubis without oral contrast. IV 100mL Isovue-300 was administered. Sagittal and coronal images were reconstructed. Individualized dose optimization techniques were used for this CT. COMPARISON: None. FINDINGS: There are chronic interstitial fibrotic changes of the lung bases. 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 Mild fatty infiltration of liver is noted. Normal gallbladder and extrahepatic biliary system. Normal spleen. Normal pancreas. Normal bilateral adrenal glands. Normal right kidney. Normal left kidney. Normal visualized stomach. Normal small intestine. Retained stool noted throughout the majority of the colon. Scattered colonic diverticula noted. Within the distal descending and proximal sigmoid colon, there is some mucosal thickening of the colon with a minimal amount of pericolonic inflammatory stranding suggesting acute diverticulitis. No perforation or abscess is noted. The appendix is visualized and appears normal. Appendix noted on coronal recon images 54 through 62 There is diffuse atherosclerotic calcification of the abdominal aorta and its branches, without a demonstrated aneurysm. Normal inferior vena cava. Normal retroperitoneum. Normal urinary bladder. Normal abdominal wall. Degenerative bony changes noted throughout the lumbar spine and pelvis. Bilateral hip replacements free of complication CT/Abdomen/Pelvis W IV Cont ONLY IMPRESSION: Acute diverticulitis suspected in the distal descending and proximal sigmoid colon where there is some mucosal thickening of the colon and a minimal amount of pericolonic inflammatory stranding. No perforation or abscess noted Mild fatty infiltration of liver, no discrete lesion No free intraperitoneal fluid, air, or suspicious adenopathy Diffuse atherosclerosis Degenerative bony changes, replaced hip joints free of complication Electronically Signed: Phillip Arriola MD at 12:16 EDT ,
[2022-08-28 13:07] VITALS: BP 175/99; PULSE 71; RESP 16; TEMP 36.6; O2SAT 97
--- NOTE | 2022-08-28 13:37 | PCM.HP.STD ---
HPI - General General Date of Admission: 08/28/22 Date of Service: 08/28/22 Chief Complaint: Bright red blood per rectum HPI Narrative DAWSON GARCIA, is a 81 M with history of hemorrhoids, atrial flutter on Coumadin with history of ablation, pacemaker, aortic valve repair, hypertension who presented to [facility] 08/28/2022 with bright red blood per rectum. Earlier in the day he was going to the bathroom when he stood up bright red blood came out and was dripping down. He presented to the ED and there was bright blood initially on exam by ED physician. He contacted GI who recommended CT scan and CT scan showed changes consistent with diverticulitis. Hospitalist consulted for admission. Patient evaluated family member at bedside, he reported he was hungry and wanted to eat but otherwise had no complaints. Denied any abdominal pain, diarrhea, constipation. Said that he had the bleeding earlier and that was his only complaint and denied bleeding like that previously, has had some blood before when straining with his hemorrhoids but not like this. No fevers or chills, no chest pain or shortness of breath. [facility] Medical History (Updated 08/28/22 @ 17:[address] 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 External hemorrhoids without mention of complication Hemorrhage of rectum and anus Hx of sigmoidoscopy Hypertension Hypertrophy of prostate with urinary retention Osteoarthritis Home Medications finasteride 5 mg tablet 5 mg PO DAILY PROSTATE 02/20/14 [History Last Taken 08/27/22] lysine 600 mg tablet 600 mg PO DAILY PRN Cold Sores 02/20/14 [History Last Taken Unknown] warfarin 5 mg tablet 1 tab PO SUMOTUTHFRSA BLOOD THINNER 07/11/16 [History Last Taken 08/26/22] echinacea 380 mg capsule 380 mg PO ONCE PRN COLD SYMPTOMS 03/19/17 [History Last Taken Unknown] triamcinolone acetonide 55 mcg nasal spray aerosol (Nasacort) 1 - 2 spray intranasal QHS ALLERGIES 03/19/17 [History Last Taken 08/27/22] aspirin 81 mg tablet,delayed release 81 mg PO DAILY HEART HEALTH 08/28/22 [History Last Taken 08/27/22] atorvastatin 10 mg tablet 10 mg PO QHS CHOLESTEROL 08/28/22 [History Last Taken 08/27/22] cholecalciferol (vitamin D3) 25 mcg (1,000 unit) tablet 25 mcg PO DAILY SUPPLEMENT 08/28/22 [History Last Taken 08/27/22] losartan 50 mg tablet 50 mg PO BID BLOOD PRESSURE 08/28/22 [History Last Taken 08/27/22] metoprolol tartrate 50 mg tablet 50 mg PO BID BLOOD PRESSURE 08/28/22 [History Last Taken 08/27/22] warfarin 5 mg tablet 7.5 mg PO WE BLOOD THINNER 08/28/22 [History Last Taken 08/27/22] zinc acetate 50 mg (zinc) capsule 50 mg PO DAILY PRN Cold Symptoms 08/28/22 [History Last Taken Unknown] Allergy/AdvReac Type Severity Reaction Status Date / Time amlodipine Allergy Unknown Unknown Verified 04/09/17 08:48 adhesive tape Allergy Rash Verified 04/09/17 08:48 clarithromycin [From Biaxin] AdvReac Other Verified 04/09/17 08:48 doxycycline AdvReac Other Verified 04/09/17 08:48 oxycodone [Oxycodone] AdvReac Nausea Verified 04/09/17 08:48 oxycodone HCl [From Percocet] AdvReac Other Verified 04/09/17 08:48 tamsulosin HCl [From Flomax] AdvReac Other Verified 04/09/17 08:48 Family History Father Heart disease Surgical History History of basal cell carcinoma excision History of heart valve replacement History of surgery on upper extremity S/P aortic valve replacement with tissue S/P cataract extraction S/P colonoscopy S/P rotator cuff repair Status post total hip replacement, left Status post total replacement of hip Social History Smoking Status: Former smoker second hand exposure: No alcohol intake: current alcohol intake frequency: holidays/special occasions only substance use type: does not use caffeine: No what type of physical activity do you participate in: other details: patient goes to [facility] frequency: 1-2 times per week seatbelt use: always ROS ROS Narrative General: Denies fever/chills HENT: Denies headache, denies stuffy nose, denies sore throat EYES: Denies changes in vision Resp: Denies cough, denies shortness of breath Cardiac: Denies chest pain GI: Denies abdominal pain, denies changes in bowel, denies nausea/vomiting, earlier had bright red blood per rectum : Denies changes in urination Extremity: Denies swelling MSK: Denies weakness Neuro: Denies any numbness/tingling Heme: Denies any bleeding or bruising Skin: Denies rashes Psychiatric: No complaints voiced Vital Signs Vital Signs Vital Signs: 08/28/22 08:58 08/28/22 09:44 08/28/22 13:07 Temperature 97.1 F L 97.8 F Temperature Source Temporal Temporal Pulse Rate 94 71 Pulse Rate [Lying] 60 Pulse Rate [Sitting (for 1 minute prior to obtaining)] 68 Pulse Rate [Standing (for 1 minute prior to obtaining)] 62 Respiratory Rate 18 16 Blood Pressure 156/91 H 175/99 H Blood Pressure [Lying] 158/88 H Blood Pressure [Sitting (for 1 minute prior to obtaining)] 154/79 H Blood Pressure [Standing (for 1 minute prior to obtaining)] 144/82 H Blood Pressure Mean 112 124 Blood Pressure Mean [Lying] 111 Blood Pressure Mean [Sitting (for 1 minute prior to obtaining)] 104 Blood Pressure Mean [Standing (for 1 minute prior to obtaining)] 102 Pulse Ox 97 97 Oxygen Delivery Method Room Air Room Air Weight Weight: 80.921 kg Body Mass Index (BMI) 27.1 Physical Exam Narrative General: Alert, oriented, no apparent distress HEENT: Atraumatic, normocephalic Eyes: Anicteric, normal conjunctiva, extraocular movements grossly intact Neck: Supple Respiratory: Clear to auscultation bilaterally, normal respiratory effort Cardiovascular: Regular rate and rhythm GI: Soft, nontender, nondistended Extremities: No edema Musculoskeletal: Moving all extremities Neuro: No overt focal neurological deficits Skin: No rashes appreciated Psych: Irritable Results Lab / Micro Data Result Diagrams: 08/28/22 14:46 08/28/22 09:30 Labs: Laboratory Results - last 24 hr 08/28/22 09:30: PT 28.6 H, INR 2.6 08/28/22 09:30: Blood Type O POSITIVE, Antibody Screen NEGATIVE 08/28/22 09:30: WBC 6.8, RBC 3.75 L, Hgb 11.5 L, Hct 34.5 L, MCV 92.0, MCH 30.7, MCHC 33.3, RDW Std Deviation 47.0 H, RDW Coeff of Ed 14.0, Plt Count 183, MPV 8.9, Immature Gran % (Auto) 0.400, Neut % (Auto) 48.8, Lymph % (Auto) 34.1, [place] % (Auto) 11.3 H, Eos % (Auto) 4.7, Baso % (Auto) 0.7, Absolute Neuts (auto) 3.3, Absolute Lymphs (auto) 2.33, Nucleated RBC % 0 08/28/22 09:30: Sodium 141, Potassium 4.1, Chloride 108 H, Carbon Dioxide 30.0, Anion Gap 3 L, BUN 30 H, Creatinine 1.12, Estim Creat Clear Calc 49.20, Est GFR (MDRD) Af Amer 81, Est GFR (MDRD) Non-Af 67, BUN/Creatinine Ratio 26.8 H, Glucose 102, Calcium 9.1, Total Bilirubin 0.80, AST 29, ALT 30, Alkaline Phosphatase 121 H, Total Protein 6.7, Albumin 3.3, Globulin 3.4, Albumin/Globulin Ratio 1.0 Radiology Impression Abdomen/Pelvis CT 08/28/22 11:33 IMPRESSION: Acute diverticulitis suspected in the distal descending and proximal sigmoid colon where there is some mucosal thickening of the colon and a minimal amount of pericolonic inflammatory stranding. No perforation or abscess noted Mild fatty infiltration of liver, no discrete lesion No free intraperitoneal fluid, air, or suspicious adenopathy Diffuse atherosclerosis Degenerative bony changes, replaced hip joints free of complication Electronically Signed: Phillip Arriola MD at 12:16 EDT , Assessment & Plan Assessment/Plan (1) Diverticulitis: PLAN: Plan #Bright red blood per rectum -Likely secondary to diverticula -Had enough blood that it was pouring out of him per patient and some dried blood around rectum -Hemoglobin 11.5, increased to 12.1 and orthostatic negative -Started on Zosyn, no further blood appreciated upon floor and patient anxious to eat -Diet ordered -Discussed with GI, no plans for present scope given bleeding resolved, hemoglobin stable, diverticulitis noted and diverticula most likely the culprit -Will eventually need outpatient colonoscopy if one has not been recently completed -Patient had the episode of blood per rectum and only dried blood noted in the ED on initial exam but has no further bleeding, and hemoglobin actually increased, will hold off on urgent reversal of INR of 2.6 given elevated [id number] in light of no further bleeding we will monitor H&H with low threshold to give vitamin K if any further bleeding is appreciated and will hold any further Coumadin dosing #Acute uncomplicated diverticulitis -Presented with blood per rectum and was found to have diverticulitis on CT scan in ED -Started on Zosyn -Patient wanted to eat, from a diverticulitis perspective could likely be treated as an outpatient once verified bleeding has resolved #Atrial fibrillation with history of cardioversion -Patient therapeutic on Coumadin, given resolved bleeding with no drop in hemoglobin and negative orthostats and no symptoms do not feel he needs to be urgently reversed with his INR of 2.6 but low threshold to do so with any further bleeding at all -We will hold Coumadin however at this time #DVT ppx: Patient presently still therapeutic on Coumadin Swetha Lozano MD Time spent in the patient's overall evaluation,decision-making process, review of diagnostic data, adjustment of management, discussion with other providers, nursing nursing and ancillary staff involved in patient's care documentation, 60 minutes Charges/Coding Visit Charges Inpatient E&M: 96541 Init Hosp L2
[2022-08-28 13:59] VITALS: BMI 27.1
[2022-08-28 14:15] VITALS: BP 157/98; PULSE 65; RESP 18; TEMP 36.1; O2SAT 100
[2022-08-28 14:54] LABS: Hemoglobin 12.1 g/dL (13.0-16.5)
[2022-08-28 18:40] LABS: Hemoglobin 12.2 g/dL (13.0-16.5)
[2022-08-28 20:15] VITALS: BP 144/77; PULSE 62; RESP 16; TEMP 36.6; O2SAT 98
[2022-08-28] MEDS: Losartan Potassium 50 MG Tablet 25 MG PO (21:18)
[2022-08-28] MEDS: Atorvastatin Calcium 10 MG Tablet PO (21:19)
[2022-08-28] MEDS: 0.9% Saline Lock 10 ML Syringe IV (21:27)
[2022-08-28 23:14] VITALS: BP 144/77; PULSE 62
[2022-08-28] MEDS: Metoprolol Tartrate 50 MG Tablet PO (23:14)
[2022-08-29 03:00] VITALS: BP 142/88; PULSE 60; RESP 16; TEMP 36.6; O2SAT 98
[2022-08-29 06:08] LABS: Absolute Lymphocyte Count 2.25 X10^3/uL (0.83-4.51); Absolute Neutrophil Count 3.3 X10^3/uL (2.0-7.7); Basophil# 0.05 X10^3/uL; Basophil% 0.8 % (0-1); Eosinophil# 0.34 X10^3/uL; Eosinophils% 5.1 % (0-5); Hematocrit 31.9 % (40-54); Lymphocyte # 2.25 X10^3/ul (0.83-4.51); Mean Corp Hgb Conc 34.5 g/dL (32-36); Mean Corpuscular Hgb 31.4 pg (27.0-32.0); Mean Corpuscular Volume 91.1 fL (80-94); Mean Platelet Vol. 8.7 fl (6.2-12.0); Monocyte# 0.65 X10^3/uL; Monocyte% 9.8 % (0-10); NRBC Flagged by Analyzer 0 % (0-5); Neutrophil # 3.31 X10^3/uL (2.7-7.7); Platelet Count 159 K/mm3 (150-450); RBC Distribution Width SD 46.5 fl (35.1-43.9); White Blood Count 6.6 K/mm3 (4.4-11.0)
[2022-08-29 06:20] LABS: International Normalized Ratio 2.4; Prothrombin Time (Protime)PT. 26.5 SECONDS (11.7-14.9)
[2022-08-29 06:42] LABS: AST(SGOT) 29 U/L (15-37); Alanine Aminotransfer ALT/SGPT 27 U/L (16-61); Albumin, Serum 3.1 g/dL (3.2-5.0); Alkaline Phosphatase 100 U/L (45-117); Anion Gap 3 (5-15); BUN 28 mg/dL (7-18); BUN/Creat Ratio 26.4 RATIO (10-20); Calcium,Total 8.9 mg/dL (8.5-10.1); Chloride 108 mmol/L (98-107); Creatinine, Serum 1.06 mg/dL (0.70-1.30); EST Glomerular Filtration Rate 71 mL/min (>60); Est Glom Filt Rate - Afr Amer 86 mL/min (>60); Estimated Creatinine Clearance 51.98 ml/min; Glucose 102 mg/dL (74-106); Potassium 4.2 mmol/L (3.5-5.1); Protein, Total 6.1 g/dL (6.4-8.2); Sodium Level 138 mmol/L (136-145)
--- NOTE | 2022-08-29 07:07 | PCM.PN.HOSP ---
Reason for Visit Reason for Visit: Diagnoses Diverticulitis of intestine, part unspecified, without perforation or abscess without bleeding (08/28/22) Subjective Subjective No acute events overnight per self and per nursing report with most recent repeat hemoglobin 11, remained stable. Patient's vital signs have also remained stable. He denies any recurrent bleeding per rectum and had a recent bowel movement today that was normal appearing. He has been tolerating a diet with no nausea or emesis nor any abdominal pain. Patient denies fevers, chills, nausea, emesis, abdominal pain, chest pain or dyspnea. Objective Data Objective Data Vital Signs: Vital Signs Temp Pulse Resp BP Pulse Ox O2 Del Method 97.8 F 60 16 142/88 H 98 Room Air 08/29/22 03:00 08/29/22 03:00 08/29/22 03:00 08/29/22 03:00 08/29/22 03:00 08/29/22 03:00 Oxygen Delivery Method Room Air Weight: 178 lb 6.4 oz Body Mass Index (BMI) 27.1 Intake & Output: Intake and Output for Last 24 Hours 08/27/22 08/28/22 08/29/22 23:59 23:59 23:59 Intake Total 50.25 / 50.25 50 / 50 Balance 50.25 / 50.25 50 / 50 Lab / Micro Data Result Diagrams: 08/29/22 05:42 08/29/22 05:42 Labs: Laboratory Results - last 24 hr 08/28/22 09:30: PT 28.6 H, INR 2.6 08/28/22 09:30: Blood Type O POSITIVE, Antibody Screen NEGATIVE 08/28/22 09:30: WBC 6.8, RBC 3.75 L, Hgb 11.5 L, Hct 34.5 L, MCV 92.0, MCH 30.7, MCHC 33.3, RDW Std Deviation 47.0 H, RDW Coeff of Ed 14.0, Plt Count 183, MPV 8.9, Immature Gran % (Auto) 0.400, Neut % (Auto) 48.8, Lymph % (Auto) 34.1, [place] % (Auto) 11.3 H, Eos % (Auto) 4.7, Baso % (Auto) 0.7, Absolute Neuts (auto) 3.3, Absolute Lymphs (auto) 2.33, Nucleated RBC % 0 08/28/22 09:30: Sodium 141, Potassium 4.1, Chloride 108 H, Carbon Dioxide 30.0, Anion Gap 3 L, BUN 30 H, Creatinine 1.12, Estim Creat Clear Calc 49.20, Est GFR (MDRD) Af Amer 81, Est GFR (MDRD) Non-Af 67, BUN/Creatinine Ratio 26.8 H, Glucose 102, Calcium 9.1, Total Bilirubin 0.80, AST 29, ALT 30, Alkaline Phosphatase 121 H, Total Protein 6.7, Albumin 3.3, Globulin 3.4, Albumin/Globulin Ratio 1.0 08/28/22 14:46: Hgb 12.1 L 08/28/22 18:26: Hgb 12.2 L 08/29/22 00:07: Hgb 11.0 L 08/29/22 05:42: WBC 6.6, RBC 3.50 L, Hgb 11.0 L, Hct 31.9 L, MCV 91.1, MCH 31.4, MCHC 34.5, RDW Std Deviation 46.5 H, RDW Coeff of Ed 14.0, Plt Count 159, MPV 8.7, Immature Gran % (Auto) 0.300, Neut % (Auto) 50.0, Lymph % (Auto) 34.0, [place] % (Auto) 9.8, Eos % (Auto) 5.1 H, Baso % (Auto) 0.8, Absolute Neuts (auto) 3.3, Absolute Lymphs (auto) 2.25, Nucleated RBC % 0 08/29/22 05:42: PT 26.5 H, INR 2.4 08/29/22 05:42: Sodium 138, Potassium 4.2, Chloride 108 H, Carbon Dioxide 27.0, Anion Gap 3 L, BUN 28 H, Creatinine 1.06, Estim Creat Clear Calc 51.98, Est GFR (MDRD) Af Amer 86, Est GFR (MDRD) Non-Af 71, BUN/Creatinine Ratio 26.4 H, Glucose 102, Calcium 8.9, Total Bilirubin 1.00, AST 29, ALT 27, Alkaline Phosphatase 100, Total Protein 6.1 L, Albumin 3.1 L, Globulin 3.0, Albumin/Globulin Ratio 1.0 Radiography Diagnostic Testing: Radiology Impression Abdomen/Pelvis CT 08/28/22 11:33 IMPRESSION: Acute diverticulitis suspected in the distal descending and proximal sigmoid colon where there is some mucosal thickening of the colon and a minimal amount of pericolonic inflammatory stranding. No perforation or abscess noted Mild fatty infiltration of liver, no discrete lesion No free intraperitoneal fluid, air, or suspicious adenopathy Diffuse atherosclerosis Degenerative bony changes, replaced hip joints free of complication Electronically Signed: Phillip Arriola MD at 12:16 EDT Reading Location ID and State: [facility] / [place] , Service support , Physical Exam Narrative Physical Examination: General: Awake, alert, oriented x 3 and cooperative, seated upright in medical surgical bed in no apparent distress. Skin: Normal color, normal turgor, no icterus, no cyanosis. HEENT: AT/NC, EOMI, PERRLA, MMM. Lungs: CTA bilaterally, moderate effort, mild decrease BL bases, no rales, ronchi or wheezing. Heart: Regular rate and rhythm; no gallop, rub audible, + SM. Abdomen: Soft, NTTP, ND, normal BS. Extremities: No cyanosis, clubbing, or edema. Neurological: Patient awake, alert, oriented as noted, cognitive function intact; pupils equally reactive to light and accommodation, cranial nerves II-XII grossly normal, moving all 4 extremities, no focal deficits, strength improved, mildly globally decreased, improving. Psychiatric: Affect appears normal, if, eager for discharge, no acute evidence of depressive or anxiety feelings. Assessment & Plan Assessment/Plan (1) Diverticulitis: PLAN: Plan The patient is an 81 y/o M w/ PMHx: Hemorrhoids, PAF on coumadin s/p ablation, AVR, s/p pacemaker status, HTN, HLD, BPH with Hx urinary retention who presents to the [facility] ED on 08/28/22 with history of bright red blood per rectum with no recent abdominal pain, diarrhea or constipation prompted eventual ED evaluation. #1. Acute bright red blood per rectum suspected likely secondary to acute uncomplicated diverticulitis: Upon admission hemoglobin 11.5--> trended 12.1-> 08/29/2022 hemoglobin 11, admission CT abdomen and pelvis with contrast with acute diverticulitis suspected the distal descending and proximal sigmoid colon where there is mucosal thickening of the colon and a minimal amount of pericolonic inflammatory stranding with no perforation or abscess noted, patient maintained on IV Zosyn therapy, currently tolerating a regular diet, gastroenterology discussed case with admitting physician and given hemoglobin stable at that time noted no intention for acute endoscopy with planned outpatient colonoscopy, held off on any urgent reversal of INR given hemoglobin was stable and underlying cardiac history with hold temporarily on Coumadin therapy, remained stable with stable vital signs and BM this a.m. with no bleeding we will plan discharge to home on Augmentin therapy with temporary hold on Coumadin with follow-up outpatient with gastroenterology for outpatient colonoscopy and consideration restart Coumadin in approximately 1 week following repeat hemoglobin check with PCP at follow-up. #2. Valvular heart disease: Status post AVR as well as pacemaker placement previously, INR therapeutic upon presentation, temporally holding Coumadin given #1, resume once clinically appropriate, will continue to trend INR, 08/29/2022 INR 2.4, noted history of artificial AV homograft 1992 complicated by bioprosthetic valve endocarditis 1998, redo AV replacement with homograft. No recent echocardiogram noted in system. #3. Atrial fibrillation with history of cardioversion: Admission INR 2.6, hemoglobin stable with no marked evidence of active bleeding upon presentation, held off on reversal, orthostatics negative, Coumadin transiently held pending hemoglobin trending, continued on patient home metoprolol regimen. #4. Hypertension: Continue home regimen including metoprolol, losartan, PRN hydralazine. #5. Hyperlipidemia: We will continue patient on statin therapy. #6. BPH with history of urinary retention: We will continue patient home finasteride regimen, orthostatics negative. #7. DVT prophylaxis: Coumadin on hold, trending INR, 08/29/2022 INR 2.4. #8. CODE STATUS: Full code. Admission Evaluation Time spent evaluating chart, patient history, patient evaluation, care planning and discussion with specialists: 35 minutes. Charges/Coding Visit Charges Inpatient E&M: 16738 Subs Hosp L2
[2022-08-29 07:51] VITALS: PULSE 61
[2022-08-29] MEDS: Losartan Potassium 50 MG Tablet 25 MG PO (07:51)
[2022-08-29] MEDS: Finasteride 5 MG Tablet PO (07:51)
[2022-08-29] MEDS: Metoprolol Tartrate 50 MG Tablet PO (07:51)
[2022-08-29 08:10] VITALS: BP 144/85; PULSE 61; RESP 18; TEMP 36.6; O2SAT 95
--- NOTE | 2022-08-29 11:24 | PCM.DC.SUM ---
Providers Date of Admission: 08/28/22 Date of Discharge: 08/29/22 Primary Care Physician: Dr. Preston Burger MD Reason For Visit: GI BLEED, DIVERTICULITIS Diagnosis Discharge Diagnosis (1) Diverticulitis: Status: Acute Code(s): K57.92 - Diverticulitis of intestine, part unspecified, without perforation or abscess without bleeding Plan: Discharge Diagnoses: #1. Acute bright red blood per rectum suspected likely secondary to acute uncomplicated diverticulitis w/ associated acute diverticular bleed complicated by chronic anticoagulation with coumadin for underlying PAF. #2. Valvular heart disease, Status post AVR #3. Atrial fibrillation with history of cardioversion #4. Hypertension #5. Hyperlipidemia #6. BPH with history of urinary retention #7. CODE STATUS: Full code. Medications at Discharge Home Medications finasteride 5 mg tablet 5 mg PO DAILY PROSTATE 02/20/14 lysine 600 mg tablet 600 mg PO DAILY PRN Cold Sores 02/20/14 warfarin 5 mg tablet 1 tab PO SUMOTUTHFRSA BLOOD THINNER 07/11/16 echinacea 380 mg capsule 380 mg PO ONCE PRN COLD SYMPTOMS 03/19/17 triamcinolone acetonide 55 mcg nasal spray aerosol (Nasacort) 1 - 2 spray intranasal QHS ALLERGIES 03/19/17 aspirin 81 mg tablet,delayed release 81 mg PO DAILY HEART HEALTH 08/28/22 atorvastatin 10 mg tablet 10 mg PO QHS CHOLESTEROL 08/28/22 cholecalciferol (vitamin D3) 25 mcg (1,000 unit) tablet 25 mcg PO DAILY SUPPLEMENT 08/28/22 losartan 50 mg tablet 50 mg PO BID BLOOD PRESSURE 08/28/22 metoprolol tartrate 50 mg tablet 50 mg PO BID BLOOD PRESSURE 08/28/22 warfarin 5 mg tablet 7.5 mg PO WE BLOOD THINNER 08/28/22 zinc acetate 50 mg (zinc) capsule 50 mg PO DAILY PRN Cold Symptoms 08/28/22 amoxicillin 875 mg-potassium clavulanate 125 mg tablet 1 tab PO Q8H 9 days #27 tabs 08/29/22 Hospital Course Operations None Procedures EKG Summary of Care Provided Minutes Spent on Discharge: 35 Hospital Course: The patient is an 81 y/o M w/ PMHx: Hemorrhoids, PAF on coumadin s/p ablation, AVR, s/p pacemaker status, HTN, HLD, BPH with Hx urinary retention who presents to the [facility] ED on 08/28/22 with history of bright red blood per rectum with no recent abdominal pain, diarrhea or constipation prompted eventual ED evaluation. Upon admission hemoglobin 11.5--> trended 12.1-> 08/29/2022 hemoglobin 11, admission CT abdomen and pelvis with contrast with acute diverticulitis suspected the distal descending and proximal sigmoid colon where there is mucosal thickening of the colon and a minimal amount of pericolonic inflammatory stranding with no perforation or abscess noted, patient maintained on IV Zosyn therapy, currently tolerating a regular diet, gastroenterology discussed case with admitting physician and given hemoglobin stable at that time noted no intention for acute endoscopy with planned outpatient colonoscopy, held off on any urgent reversal of INR given hemoglobin was stable and underlying cardiac history with hold temporarily on Coumadin therapy, remained stable with stable vital signs and BM this a.m. with no bleeding we will plan discharge to home on Augmentin therapy with temporary hold on Coumadin with follow-up outpatient with gastroenterology for outpatient colonoscopy and consideration restart Coumadin in approximately 1 week following repeat hemoglobin check with PCP at follow-up. Weight / BMI Weight Weight: 178 lb 6.4 oz Body Mass Index (BMI) 27.1 ABG / Lab / Microbiology Data Result Diagrams: 08/29/22 05:42 08/29/22 05:42 Laboratory: Laboratory Results - last 24 hr 08/28/22 14:46: Hgb 12.1 L 08/28/22 18:26: Hgb 12.2 L 08/29/22 00:07: Hgb 11.0 L 08/29/22 05:42: WBC 6.6, RBC 3.50 L, Hgb 11.0 L, Hct 31.9 L, MCV 91.1, MCH 31.4, MCHC 34.5, RDW Std Deviation 46.5 H, RDW Coeff of Ed 14.0, Plt Count 159, MPV 8.7, Immature Gran % (Auto) 0.300, Neut % (Auto) 50.0, Lymph % (Auto) 34.0, [place] % (Auto) 9.8, Eos % (Auto) 5.1 H, Baso % (Auto) 0.8, Absolute Neuts (auto) 3.3, Absolute Lymphs (auto) 2.25, Nucleated RBC % 0 08/29/22 05:42: PT 26.5 H, INR 2.4 08/29/22 05:42: Sodium 138, Potassium 4.2, Chloride 108 H, Carbon Dioxide 27.0, Anion Gap 3 L, BUN 28 H, Creatinine 1.06, Estim Creat Clear Calc 51.98, Est GFR (MDRD) Af Amer 86, Est GFR (MDRD) Non-Af 71, BUN/Creatinine Ratio 26.4 H, Glucose 102, Calcium 8.9, Total Bilirubin 1.00, AST 29, ALT 27, Alkaline Phosphatase 100, Total Protein 6.1 L, Albumin 3.1 L, Globulin 3.0, Albumin/Globulin Ratio 1.0 Radiography Diagnostic Testing: Radiology Impression Abdomen/Pelvis CT 08/28/22 11:33 IMPRESSION: Acute diverticulitis suspected in the distal descending and proximal sigmoid colon where there is some mucosal thickening of the colon and a minimal amount of pericolonic inflammatory stranding. No perforation or abscess noted Mild fatty infiltration of liver, no discrete lesion No free intraperitoneal fluid, air, or suspicious adenopathy Diffuse atherosclerosis Degenerative bony changes, replaced hip joints free of complication Electronically Signed: Phillip Arriola MD at 12:16 EDT Reading Location ID and State: [address] [place] [address] , Service support , Meaningful Use Info Meaningful Use Diagnoses (Choose all that apply): None applicable Discharge Plan Admission Admit Date/Time: 08/28/22 13:37 Primary Reason for Your Visit: Acute diverticular bleed with acute diverticulitis Attending Provider: Jennifer Tobias Primary Care Provider: Preston Burger Consulting Providers: Swetha Lozano Instructions Additional Instructions / Restrictions: DURING THE ADMISSION: Admission hemoglobin 11.5--> trended 12.1-> 08/29/[address] abdomen and pelvis with contrast with acute diverticulitis suspected the distal descending and proximal sigmoid colon where there is mucosal thickening of the colon and a minimal amount of pericolonic inflammatory stranding with no perforation or abscess noted. Treated with IV zosyn transitioned at discharge to oral augmentin. During admission given associated diverticular bleeding both aspirin and coumadin temporarily held. Requested hold with PCP within 3 to 5 days with repeat hemoglobin check and if remains stable consideration of resumption of aspirin and Coumadin at that time with continued close INR trending and hemoglobin recheck to assure remained stable. We do recommend that you follow-up with gastroenterology for colonoscopy given diverticular bleed with this infection. Discharge Orders/Prescriptions Prescriptions: New amoxicillin-pot clavulanate 875-125 mg tablet 1 tab PO Q8H 9 Days Qty: 27 0RF Continued echinacea 380 mg capsule 380 mg PO ONCE PRN (Reason: COLD SYMPTOMS) triamcinolone acetonide [Nasacort] 55 mcg aerosol,spray 1 - 2 spray INTRANASAL QHS finasteride 5 MG tablet 5 mg PO DAILY lysine 600 MG tablet 600 mg PO DAILY PRN (Reason: Cold Sores) losartan 50 mg tablet 50 mg PO BID atorvastatin 10 mg tablet 10 mg PO QHS metoprolol tartrate 50 mg tablet 50 mg PO BID cholecalciferol (vitamin D3) 25 mcg (1,000 unit) Tablet 25 mcg PO DAILY zinc acetate 50 mg (zinc) Capsule 50 mg PO DAILY PRN (Reason: Cold Symptoms) Held warfarin 5 MG tablet 1 tab PO SUMOTUTHFRSA Hold Instructions: Resume on 09/05/22. Hold coumadin until repeat hemoglobin check with primary care upon follow-up and if it remains stable then resume coumadin with close follow-up repeat hgb to assure remains appropriate following restart. Label Comments: aspirin 81 mg Tablet,Delayed Release (Dr/Ec) 81 mg PO DAILY Hold Instructions: Resume on 09/05/22. Temporarily hold with resumption in 1 week following primary care assessment and repeat hgb check to assure stable. warfarin 5 mg Tablet 7.5 mg PO WE Hold Instructions: Resume on 09/05/22. Hold until PCP re-evaluation and repeat Hgb check, then if PCP amenable may resume while closely monitoring Hgb rechecks. Referrals / Follow Up: Benedict Gray DO [Med Staff - Active Staff] - (Follow-up for outpatient colonoscopy set-up.) Preston Burger MD [Primary Care Provider] - (Follow-up in 3-5 days to review admission, have repeat hgb check to assure appropriate for restart of coumadin/asa.) Disposition Disposition (needs filled in before D/C Order can be placed): Home, Self Care Charges/Coding Visit Charges Inpatient E&M: 32309 Disch Hosp >30min
--- NOTE | 2022-08-29 11:39 | DCINST_ITS ---
Discharge Instructions Diet Discharge Diet: Low fat / Low cholesterol Activity Discharge Activity: Return to Normal Activity Dressing / Incision Call your doctor if you observe: Fever of 101 or Higher, Numbness or Tingling, Shortness of breath, Increased palpitations (irregular heartbeat), Uncontrolled pain and - (Recurrent rectal bleeding.) Follow Up Care Test Results: Test results from this visit will be discussed in further detail at your follow- up appointment, if applicable. Discharge Plan Admission Admit Date/Time: 08/28/22 13:37 Primary Reason for Your Visit: Acute diverticular bleed with acute diverticulitis Attending Provider: Jennifer Tobias Primary Care Provider: Preston Burger Consulting Providers: Swetha Lozano Instructions Additional Instructions / Restrictions: DURING THE ADMISSION: Admission hemoglobin 11.5--> trended 12.1-> 08/29/[address] abdomen and pelvis with contrast with acute diverticulitis suspected the distal descending and proximal sigmoid colon where there is mucosal thickening of the colon and a minimal amount of pericolonic inflammatory stranding with no perforation or abscess noted. Treated with IV zosyn transitioned at discharge to oral augmentin. During admission given associated diverticular bleeding both aspirin and coumadin temporarily held. Requested hold with PCP within 3 to 5 days with repeat hemoglobin check and if remains stable consideration of resumption of aspirin and Coumadin at that time with continued close INR trending and hemoglobin recheck to assure remained stable. We do recommend that you follow-up with gastroenterology for colonoscopy given diverticular bleed with this infection. Discharge Orders/Prescriptions Prescriptions: New amoxicillin-pot clavulanate 875-125 mg tablet 1 tab PO Q8H 9 Days Qty: 27 0RF Continued echinacea 380 mg capsule 380 mg PO ONCE PRN (Reason: COLD SYMPTOMS) triamcinolone acetonide [Nasacort] 55 mcg aerosol,spray 1 - 2 spray INTRANASAL QHS finasteride 5 MG tablet 5 mg PO DAILY lysine 600 MG tablet 600 mg PO DAILY PRN (Reason: Cold Sores) losartan 50 mg tablet 50 mg PO BID atorvastatin 10 mg tablet 10 mg PO QHS metoprolol tartrate 50 mg tablet 50 mg PO BID cholecalciferol (vitamin D3) 25 mcg (1,000 unit) Tablet 25 mcg PO DAILY zinc acetate 50 mg (zinc) Capsule 50 mg PO DAILY PRN (Reason: Cold Symptoms) Held [facility] 5 MG tablet [facility] Instructions: Resume on 09/05/22. Hold coumadin until repeat hemoglobin check with primary care upon follow-up and if it remains stable then resume coumadin with close follow-up repeat hgb to assure remains appropriate following restart. Label Comments: aspirin 81 mg Tablet,Delayed Release (Dr/Ec) 81 mg PO DAILY Hold Instructions: Resume on 09/05/22. Temporarily hold with resumption in 1 week following primary care assessment and repeat hgb check to assure stable. warfarin 5 mg Tablet 7.5 mg PO WE Hold Instructions: Resume on 09/05/22. Hold until PCP re-evaluation and repeat Hgb check, then if PCP amenable may resume while closely monitoring Hgb rechecks. Referrals / Follow Up: Benedict Gray DO [Med Staff - Active Staff] - (Follow-up for outpatient colonoscopy set-up.) Preston Burger MD [Primary Care Provider] - (Follow-up in 3-5 days to review admission, have repeat hgb check to assure appropriate for restart of c oumadin/asa.) Disposition Disposition (needs filled in before D/C Order can be placed): Home, Self Care
--- NOTE | 2022-08-29 11:52 | CASEMGMT ---
ELISEO HERRON Assessment: Face to Face with pt for initial transition planning/care coordination assessment. RN GOPAL introduced self and role at [facility], pt voices understanding and consents to assessment. Pt is A/O x4 and answers all questions appropriately at this time. Pt sitting up in chair in no distress with at bedside. Care providers, pharmacy, and demographics verified/updated. Admitting Dx: GIB, diverticulitis PCP:Tao Specialists:Jacob, cardio; rachel Yepez Preferred Pharmacy: [facility] Insurance: [facility], [employer] Prescription Benefit: yes LNOK: Al Coffman, dtr; Annabella Barrientos, Living Arrangements: Pt lives with in a two story home with 4 steps to enter with a rail. Pt reports he is I in ADL's and denies concerns at home. Transportation: Pt drives self and denies concerns with transportation. DME/HHC/SNF: Pt has a cane and walker that is available to him but does not use. Pt has had HHC in the past but cannot recall the name of the agency, denies SNF stays. Pt states no concerns with going home at time of dc. Pt very anxious to go home and was seen ambulating in the halls indep. Pt states no further concerns/needs. CM to follow. Advised pt to ask CM if any further question/concerns/needs arise, voices understanding. Pt Goal: Home Plan: Home
[2022-08-29 12:20] VITALS: BP 124/49; PULSE 65; RESP 18; TEMP 36.6; O2SAT 99
--- NOTE | 2022-08-29 12:21 | PHA.DC.MC ---
Pharmacy Service has performed discharge medication reconciliation and counseling for this patient. The patient was counseled on the following discharge medications and changes in medications for homegoing were reviewed. 1. AUGMENTIN 2. WARFARIN/ASPIRIN --> Reiterated to hold medication per dc instructions. The Reason for Use, instructions for use, and potential side effects were reviewed for all new medications. The patient's questions regarding all of their medications were answered. The patient was able to verbally demonstrate an understanding of their discharge medications. Home Medications finasteride 5 mg tablet 5 mg PO DAILY PROSTATE 02/20/14 lysine 600 mg tablet 600 mg PO DAILY PRN Cold Sores 02/20/14 warfarin 5 mg tablet 1 tab PO SUMOTUTHFRSA BLOOD THINNER 07/11/16 echinacea 380 mg capsule 380 mg PO ONCE PRN COLD SYMPTOMS 03/19/17 triamcinolone acetonide 55 mcg nasal spray aerosol (Nasacort) 1 - 2 spray intranasal QHS ALLERGIES 03/19/17 aspirin 81 mg tablet,delayed release 81 mg PO DAILY HEART HEALTH 08/28/22 atorvastatin 10 mg tablet 10 mg PO QHS CHOLESTEROL 08/28/22 cholecalciferol (vitamin D3) 25 mcg (1,000 unit) tablet 25 mcg PO DAILY SUPPLEMENT 08/28/22 losartan 50 mg tablet 50 mg PO BID BLOOD PRESSURE 08/28/22 metoprolol tartrate 50 mg tablet 50 mg PO BID BLOOD PRESSURE 08/28/22 warfarin 5 mg tablet 7.5 mg PO WE BLOOD THINNER 08/28/22 zinc acetate 50 mg (zinc) capsule 50 mg PO DAILY PRN Cold Symptoms 08/28/22 amoxicillin 875 mg-potassium clavulanate 125 mg tablet 1 tab PO Q8H 9 days #27 tabs 08/29/22 The patient's discharge medication list was reviewed for discrepancies and discrepancies were resolved. Patient provided counselling by Del Lenz, IrlandaD candidate
== END 2022-08-29 12:32 | disposition home or self-care (01) | DRG 379 ==
LOC: ED 12:34 → MS3 13:10
PROVIDERS: Admitting Provider Internal Medicine; Emergency Provider Student in an Organized Health Care Education/Training Program; PCP Internal Medicine; Visit Provider Family Medicine
DX: K57.33 Diverticulitis of large intestine without perforation or abscess with bleeding (principal); E78.5 Hyperlipidemia, unspecified; I48.0 Paroxysmal atrial fibrillation; I10 Essential (primary) hypertension; N40.1 Benign prostatic hyperplasia with lower urinary tract symptoms; R33.8 Other retention of urine; Z79.01 Long term (current) use of anticoagulants; Z79.82 Long term (current) use of aspirin; Z79.899 Other long term (current) drug therapy; Z87.891 Personal history of nicotine dependence; Z95.0 Presence of cardiac pacemaker
CPT/HCPCS: 36415; 74177; 80053; 85018; 85025; 85610; 86850; 86900; 86901; 99285; J7050; Q9967; A4216